=== PATIENT | male | born 2005 | race Two or more races ===

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

== ENCOUNTER 2025-05-31 23:33 | Emergency (ER) | payer OTHER, MEDICAID ==
[2025-06-01 00:49] VITALS: BP 130/73; PULSE 100
== END 2025-06-01 00:40 | disposition home or self-care (01) ==
LOC: FB.ED 23:33
DX: S60.041A Contusion of right ring finger without damage to nail, initial encounter (principal); S09.90XA Unspecified injury of head, initial encounter; F17.200 Nicotine dependence, unspecified, uncomplicated; Z88.0 Allergy status to penicillin; V48.5XXA Car driver injured in noncollision transport accident in traffic accident, initial encounter; Y93.89 Activity, other specified
CPT/HCPCS: 70450; 72125; 73140-F8; 99283; 99284